=== PATIENT | female | born 1975 | race Caucasian/White ===

== ENCOUNTER 2024-07-09 18:22 | Inpatient (IN) | payer OTHER ==
[~2024-07-09] VITALS: Ht 165.1 cm; Wt 89.4 kg
[2024-07-09] MEDS: ONDANSETRON 4MG ODT PO STA (19:16)
[2024-07-09 19:55] LABS: HEMATOCRIT. 37.7 % (36.0-48.0); MEAN CORPUSCULAR HEMOGLOBIN 33.6 pg (28.0-32.0); MEAN CORPUSCULAR HGB CONC 34.5 g/dL (31.0-37.0); MEAN CORPUSCULAR VOLUME 97.6 fL (81.0-99.0); MEAN PLATELET VOLUME 9.2 fl (7.4-10.4); RED BLOOD CELL COUNT 3.86 mill/uL (4.2-5.4); RED CELL DISTRIBUTION WIDTH 14.7 % (11.6-14.6); WHITE BLOOD COUNT 4.5 x1000/uL (4.5-11.0)
[2024-07-09 19:56] LABS: CARBON DIOXIDE 17 mEq/L (21-32); CHLORIDE 99 mEq/L (98-107); SODIUM 135 mEq/L (136-145)
[2024-07-09 19:57] LABS: CALCIUM 8.8 mg/dL (8.7-10.4)
[2024-07-09 20:01] LABS: CREATININE 0.8 mg/dL (0.6-1.0)
[2024-07-09 20:02] LABS: ETHANOL BLOOD 109 mg/dL (<10); GLUCOSE 220 mg/dL (70-105); UREA NITROGEN BLOOD 13 mg/dL (9-23)
[2024-07-09 20:04] LABS: DIFFERENTIAL COMMENT 1; PLATELET 36 x1000/uL (130-400)
[2024-07-09 20:27] LABS: POTASSIUM 2.6 mEq/L (3.5-5.1)
[2024-07-09] MEDS: POTASSIUM CHLORIDE 20MEQ TABLET SR PO ONE (21:34)
[2024-07-09 21:36] LABS: PLATELET ESTIMATE MARKEDLY DECREASED
[2024-07-10] MEDS: SODIUM CHLORIDE 0.9% 1,000 ML IV ONE (06:21)
[2024-07-10 07:02] LABS: CARBON DIOXIDE 21 mEq/L (21-32); CHLORIDE 99 mEq/L (98-107); POTASSIUM 3.4 mEq/L (3.5-5.1); SODIUM 136 mEq/L (136-145)
[2024-07-10 07:03] LABS: CALCIUM 9.2 mg/dL (8.7-10.4)
[2024-07-10 07:07] LABS: CREATININE 0.7 mg/dL (0.6-1.0); HCG SCREEN NEGATIVE
[2024-07-10 07:08] LABS: GLUCOSE 176 mg/dL (70-105); UREA NITROGEN BLOOD 14 mg/dL (9-23)
[2024-07-10 07:09] LABS: ALANINE AMINOTRANSFERASE 380 IU/L (10-49); ALBUMIN 4.1 g/dL (3.2-4.8)
[2024-07-10 07:10] LABS: BETA HYDROXYBUTYRATE 4.5 mMol/L (0.0-0.3); BILIRUBIN DIRECT 1.9 mg/dL (<=3.0); BILIRUBIN TOTAL 3.5 mg/dL (0.1-1.0); LACTIC ACID 2.4 mmol/L (0.4-2.0); PROTEIN TOTAL 7.2 g/dL (6.0-8.3)
[2024-07-10 07:12] LABS: ETHANOL BLOOD < 10 mg/dL (<10)
[2024-07-10 07:17] LABS: TROPONIN I HIGH SENSITIVITY 95 ng/L (3.0-34)
[2024-07-10 07:47] LABS: ASPARTATE AMINOTRANSFERASE 1907 IU/L (<34)
[2024-07-10 08:07] LABS: AMMONIA 168 uMol/L (<32)
[2024-07-10] MEDS: POTASSIUM CHLORIDE 30 MEQ in DEXT 5%/0.9% NACL 985 ML IV SCH (08:49)
[2024-07-10 09:47] LABS: INR 1.1; PARTIAL THROMBOPLASTIN TIME 26.6 sec (23.4-31.0); PROTHROMBIN TIME 12.4 sec (9.6-11.0)
[2024-07-10] MEDS ORDERED: IPRATROPIUM/ALBUTEROL 0.5-3(2.5)MG/3ML NEB HHN PRN (11:30)
[2024-07-10] MEDS ORDERED: ONDANSETRON HCL 4MG/2ML INJ IV PRN (11:30)
[2024-07-10] MEDS ORDERED: LORAZEPAM 2MG/ML INJ IV PRN (11:30)
[2024-07-10] MEDS ORDERED: CLONIDINE 0.1MG TABLET PO PRN (11:30)
[2024-07-10 12:00] VITALS: BP 166/93; PULSE 81; RESP 20; TEMP 36.89184; O2SAT 99
[2024-07-10] MEDS: HYDRALAZINE 20MG/ML VIAL IV PRN (12:50)
[2024-07-10] MEDS: MVI, ADULT NO.1 10 ML, FOLIC ACID 1 MG, THIAMINE HCL 100 MG in SODIUM CHLORIDE 0.9% 1,0... IV SCH (13:17)
[2024-07-10 13:36] VITALS: BP 162/89; PULSE 81; RESP 20; TEMP 36.8628
[2024-07-10] MEDS: KCL 20MEQ/100ML PREMIX 100 ML IV NR (13:41)
[2024-07-10 16:00] VITALS: BP 168/99; PULSE 110; RESP 20; TEMP 36.6696; O2SAT 100
[2024-07-10 17:03] LABS: PHOSPHORUS 0.5 mg/dL (2.5-4.9); TROPONIN I HIGH SENSITIVITY 76 ng/L (3.0-34)
[2024-07-10] MEDS ORDERED: LACTULOSE 20G/30ML UDC NG SCH (18:15)
[2024-07-10 18:16] LABS: VITAMIN B12 SERUM 1400 pg/mL (211-911)
[2024-07-10 18:26] LABS: HEPATITIS B SURFACE ANTIGEN NEGATIVE (Negative)
[2024-07-10 18:47] LABS: HEPATITIS A AB IGM NEGATIVE (Negative)
[2024-07-10 18:48] LABS: HEPATITIS B CORE AB IGM NEGATIVE (Negative); HEPATITIS C AB REACTIVE (Pos) (Negative)
[2024-07-10 20:00] VITALS: BP 166/99; PULSE 100; RESP 20; TEMP 37.2252; O2SAT 99
[2024-07-10] MEDS: RIFAXIMIN 550 MG TABLET NG SCH (21:00)
[2024-07-10 21:55] LABS: BASOPHILS % 0.3 % (0.0-2.0); EOSINOPHILS % 0.1 % (0.0-5.0); HEMATOCRIT. 38.6 % (36.0-48.0); HEMOGLOBIN. 13.3 g/dL (12.0-16.0); LYMPHOCYTES % 9.2 % (20.0-50.0); MEAN CORPUSCULAR HEMOGLOBIN 33.6 pg (28.0-32.0); MEAN CORPUSCULAR HGB CONC 34.6 g/dL (31.0-37.0); MEAN CORPUSCULAR VOLUME 97.4 fL (81.0-99.0); MEAN PLATELET VOLUME 9.1 fl (7.4-10.4); MONOCYTES % 14.2 % (2.0-8.0); NEUTROPHILS % 76.2 % (40.0-76.0); RED BLOOD CELL COUNT 3.96 mill/uL (4.2-5.4); RED CELL DISTRIBUTION WIDTH 14.9 % (11.6-14.6); WHITE BLOOD COUNT 5.9 x1000/uL (4.5-11.0)
[2024-07-10] MEDS: SODIUM PHOSPHATE 30 MMOL in SODIUM CHLORIDE 0.9% 500 ML IV NR (22:02)
[2024-07-10 22:14] LABS: ACETAMINOPHEN < 2 ug/mL (10-30)
[2024-07-10 22:23] LABS: DIFFERENTIAL COMMENT 1; TROPONIN I HIGH SENSITIVITY 75 ng/L (3.0-34)
[2024-07-10 22:24] LABS: PLATELET 50 x1000/uL (130-400)
[2024-07-10] MEDS ORDERED: IOHEXOL-300 100 ML BOTTLE ONE (23:11)
[2024-07-11] VITALS (7 sets, daily range): BP systolic 116–196; BP diastolic 83–102; PULSE 86–126; RESP 18–20; TEMP 37.05852–38.66976; O2SAT 96–100
[2024-07-11 00:28] LABS: TROPONIN I HIGH SENSITIVITY 80 ng/L (3.0-34)
[2024-07-11 02:58] LABS: PHOSPHORUS 0.7 mg/dL (2.5-4.9)
[2024-07-11] MEDS ORDERED: POTASSIUM PHOSPHATE 30 MMOL in SODIUM CHLORIDE 0.9% 490 ML IV NR (04:00)
[2024-07-11 06:02] LABS: AMMONIA 88 uMol/L (<32)
[2024-07-11 06:38] LABS: HEMOGLOBIN 13.6 g/dL (12.0-16.0); HEMOGLOBIN. 13.6 g/dL (12.0-16.0); MEAN CORPUSCULAR HEMOGLOBIN 33.5 pg (28.0-32.0); MEAN CORPUSCULAR VOLUME 98.4 fL (81.0-99.0); MEAN PLATELET VOLUME 8.5 fl (7.4-10.4); PLATELET 55 x1000/uL (130-400); RED BLOOD CELL COUNT 4.07 mill/uL (4.2-5.4); RED CELL DISTRIBUTION WIDTH 15.1 % (11.6-14.6); WHITE BLOOD COUNT 6.8 x1000/uL (4.5-11.0)
[2024-07-11 06:39] LABS: INR 1.2
[2024-07-11 06:48] LABS: CHLORIDE 108 mEq/L (98-107); SODIUM 144 mEq/L (136-145)
[2024-07-11 06:50] LABS: CARBON DIOXIDE 18 mEq/L (21-32)
[2024-07-11 06:51] LABS: CALCIUM 8.7 mg/dL (8.7-10.4)
[2024-07-11 06:55] LABS: CREATININE 0.6 mg/dL (0.6-1.0); GLUCOSE 143 mg/dL (70-105)
[2024-07-11 06:56] LABS: ALANINE AMINOTRANSFERASE 308 IU/L (10-49); UREA NITROGEN BLOOD 11 mg/dL (9-23)
[2024-07-11 06:57] LABS: ALBUMIN 3.6 g/dL (3.2-4.8); ASPARTATE AMINOTRANSFERASE 849 IU/L (<34)
[2024-07-11 06:58] LABS: BILIRUBIN DIRECT 1.7 mg/dL (<=3.0); PROTEIN TOTAL 6.6 g/dL (6.0-8.3)
[2024-07-11 08:01] LABS: DIFFERENTIAL COMMENT 1
[2024-07-11 08:21] LABS: POTASSIUM 2.5 mEq/L (3.5-5.1)
[2024-07-11] MEDS ORDERED: POTASSIUM PHOSPHATE 30 MMOL in DEXT 5% WATER 490 ML IV ONE (09:15)
[2024-07-11] MEDS: KCL 20MEQ/100ML PREMIX 100 ML IV SCH (11:15)
[2024-07-11 12:02] LABS: PLATELET ESTIMATE MARKEDLY DECREASED
[2024-07-11] MEDS: SODIUM PHOSPHATE 15 MMOL in DEXT 5% WATER 245 ML IV NR (13:32)
[2024-07-11 14:09] LABS: BG BASE EXCESS 0.6 mmol/L (-2.0-3.0); BG DEOXYHEMOGLOBIN 2.7 % (0.0-5.0); BG FRACTION INSPIRED OXYGEN 21; BG HCO3 ACT 19.9 mmol/L (21.0-28.0); BG METHEMOGLOBIN 0.1 % (0.5-1.5); BG OXYGEN SATURATION 97.3 % (94.0-98.0); BG OXYHEMOGLOBIN 96.2 % (94.0-98.0); BG PCO2 21.8 mmHg (32.0-45.0); BG PH 7.579 (7.350-7.450); BG PO2 79.4 mmHg (83.0-108.0); BG SAMPLE SITE RIGHT RADIAL; BG TOTAL HEMOGLOBIN 16.5 g/dL (12.0-16.0); BG VENT MODE ROOM AIR
[2024-07-11] MEDS: FOLIC ACID 1 MG, THIAMINE HCL 100 MG, MVI, ADULT NO.1 10 ML in DEXTROSE 5% WATER 1,000 ML IV ONE (14:22)
[2024-07-11 14:53] LABS: CLARITY URINE CLEAR (CLEAR); COLOR URINE DARK YELLOW (YELLOW); GLUCOSE URINE NEGATIVE (NEGATIVE); KETONES URINE 4+ (NEGATIVE); LEUKOCYTE ESTERASE URINE NEGATIVE (NEGATIVE); NITRITE URINE NEGATIVE (NEGATIVE); OCCULT BLOOD URINE 2+ (NEGATIVE); PROTEIN URINE 3+ (NEGATIVE); SPECIFIC GRAVITY URINE 1.019 (1.005-1.030)
[2024-07-11 15:10] LABS: BACTERIA URINE 1+; WBC URINE 0-2 /hpf (0-2); YEAST URINE NONE SEEN
[2024-07-11 15:11] LABS: SQUAMOUS EPITHELIAL CELL URINE FEW /lpf (RARE/1+)
[2024-07-11 15:25] LABS: *AMPHETAMINES SCREEN URINE NEGATIVE (NEGATIVE); *BARBITURATES SCREEN URINE NEGATIVE (NEGATIVE); *BENZODIAZEPINES SCREEN URINE NEGATIVE (NEGATIVE); *COCAINE SCREEN URINE NEGATIVE (NEGATIVE); METHADONE URINE SCREEN NEGATIVE (NEGATIVE); OPIATES URINE SCREEN NEGATIVE (NEGATIVE); PHENCYCLIDINE URINE SCREEN NEGATIVE (NEGATIVE)
[2024-07-11 15:26] LABS: CANNABINOID URINE SCREEN NEGATIVE (NEGATIVE); ECSTASY MDMA SCREEN URINE NEGATIVE (NEGATIVE)
[2024-07-11] MEDS: METRONIDAZOLE 500 MG PREMIX 100 ML IV SCH (19:11)
[2024-07-11] MEDS: LACTATED RINGERS 1,000 ML IV SCH (19:11)
[2024-07-11 19:13] LABS: CARBON DIOXIDE 21 mEq/L (21-32); CHLORIDE 109 mEq/L (98-107); SODIUM 145 mEq/L (136-145)
[2024-07-11 19:14] LABS: CALCIUM 8.5 mg/dL (8.7-10.4)
[2024-07-11 19:18] LABS: CREATININE 0.7 mg/dL (0.6-1.0); GLUCOSE 175 mg/dL (70-105)
[2024-07-11 19:19] LABS: UREA NITROGEN BLOOD 10 mg/dL (9-23)
[2024-07-11 19:21] LABS: PHOSPHORUS 1.6 mg/dL (2.5-4.9)
[2024-07-11 19:35] LABS: POTASSIUM 2.3 mEq/L (3.5-5.1)
[2024-07-11] MEDS: LACTULOSE 20G/30ML UDC PO SCH (21:13)
[2024-07-11] MEDS: CEFTRIAXONE 1GM/50ML 50ML IV SCH (21:13)
[2024-07-11] MEDS: THIAMINE HCL 200 MG in SODIUM CHLORIDE 0.9% 100 ML IV SCH (21:41)
[2024-07-11] MEDS ORDERED: PIPERACILLIN/TAZO 3.375G/100ML 100 ML IV SCH (22:00)
[2024-07-11 22:09] LABS: BG BASE EXCESS 2.4 mmol/L (-2.0-3.0); BG CARBOXYHEMOGLOBIN 0.6 % (0.5-1.5); BG DEOXYHEMOGLOBIN 1.9 % (0.0-5.0); BG FRACTION INSPIRED OXYGEN 32; BG HCO3 ACT 23.1 mmol/L (21.0-28.0); BG METHEMOGLOBIN 0.3 % (0.5-1.5); BG OXYGEN SATURATION 98.1 % (94.0-98.0); BG OXYHEMOGLOBIN 97.2 % (94.0-98.0); BG PCO2 25.9 mmHg (32.0-45.0); BG PH 7.568 (7.350-7.450); BG PO2 92.9 mmHg (83.0-108.0); BG SAMPLE SITE LEFT RADIAL; BG TOTAL HEMOGLOBIN 14.2 g/dL (12.0-16.0); BG VENT MODE NASAL CANNULA
[2024-07-12] VITALS: BP 165/93; PULSE 111; RESP 20; TEMP 37.33632; O2SAT 97
[2024-07-12 01:27] LABS: CHLORIDE 108 mEq/L (98-107); SODIUM 144 mEq/L (136-145)
[2024-07-12 01:28] LABS: CALCIUM 8.9 mg/dL (8.7-10.4); CARBON DIOXIDE 24 mEq/L (21-32)
[2024-07-12 01:33] LABS: CREATININE 0.6 mg/dL (0.6-1.0); GLUCOSE 187 mg/dL (70-105); UREA NITROGEN BLOOD 10 mg/dL (9-23)
[2024-07-12 01:58] LABS: POTASSIUM 2.3 mEq/L (3.5-5.1)
[2024-07-12 04:00] VITALS: BP 147/86; PULSE 93; RESP 20; TEMP 38.28084; O2SAT 97
[2024-07-12] MEDS: MAGNESIUM/ALUMINUM HYDROXIDE/SIMETHICONE 30ML UDC PO PRN (05:18)
[2024-07-12] MEDS: POTASSIUM CHLORIDE 20MEQ/PACKET JT NR (06:09)
[2024-07-12] MEDS: MAGNESIUM 2 G PREMIX 50 ML IV NR ×2 (06:43→17:15)
[2024-07-12] MEDS: POTASSIUM-SODIUM PHOSPHATE POWDER PACKET PO SCH (07:46)
[2024-07-12 08:10] VITALS: BP 168/100; PULSE 98; RESP 19; TEMP 37.16964; O2SAT 99
[2024-07-12 09:19] LABS: CHLORIDE 109 mEq/L (98-107); SODIUM 144 mEq/L (136-145)
[2024-07-12 09:20] LABS: CALCIUM 8.9 mg/dL (8.7-10.4); CARBON DIOXIDE 23 mEq/L (21-32)
[2024-07-12 09:24] LABS: HEMATOCRIT. 40.3 % (36.0-48.0); HEMOGLOBIN. 13.5 g/dL (12.0-16.0); MEAN CORPUSCULAR HGB CONC 33.5 g/dL (31.0-37.0); MEAN CORPUSCULAR VOLUME 98.5 fL (81.0-99.0); MEAN PLATELET VOLUME 7.9 fl (7.4-10.4); PLATELET 65 x1000/uL (130-400); RED BLOOD CELL COUNT 4.09 mill/uL (4.2-5.4); RED CELL DISTRIBUTION WIDTH 14.8 % (11.6-14.6); WHITE BLOOD COUNT 6.9 x1000/uL (4.5-11.0)
[2024-07-12 09:25] LABS: CREATININE 0.6 mg/dL (0.6-1.0); GLUCOSE 209 mg/dL (70-105); UREA NITROGEN BLOOD 9 mg/dL (9-23)
[2024-07-12 09:26] LABS: AMMONIA 76 uMol/L (<32)
[2024-07-12 09:27] LABS: ALANINE AMINOTRANSFERASE 236 IU/L (10-49); ALBUMIN 3.3 g/dL (3.2-4.8); ASPARTATE AMINOTRANSFERASE 476 IU/L (<34); BILIRUBIN TOTAL 2.8 mg/dL (0.1-1.0); PROTEIN TOTAL 6.3 g/dL (6.0-8.3)
[2024-07-12] MEDS: AMLODIPINE 5MG TABLET PO SCH (09:28)
[2024-07-12 09:30] LABS: DIFFERENTIAL COMMENT 1
[2024-07-12 09:36] LABS: INR 1.2; PROTHROMBIN TIME 13.1 sec (9.6-11.0)
[2024-07-12 12:04] VITALS: BP 138/81; PULSE 101; RESP 20; TEMP 37.28076; O2SAT 96
[2024-07-12 12:08] LABS: POTASSIUM 2.6 mEq/L (3.5-5.1)
[2024-07-12] MEDS: POTASSIUM CHLORIDE 20MEQ TABLET SR PO NR (12:54)
[2024-07-12 14:07] LABS: NUCLEATED RED BLOOD CELLS 2 /100 WBC; PLATELET ESTIMATE DECREASED
[2024-07-12] MEDS: KCL 20MEQ/100ML PREMIX 100 ML IV SCH (14:41)
[2024-07-12 16:04] VITALS: BP 134/82; PULSE 90; RESP 20; TEMP 37.00296; O2SAT 99
[2024-07-12] MEDS: ACETAMINOPHEN 650MG/20.3ML UDC PO PRN (16:47)
[2024-07-12 17:13] LABS: CARBON DIOXIDE 24 mEq/L (21-32); CHLORIDE 108 mEq/L (98-107); SODIUM 142 mEq/L (136-145)
[2024-07-12 17:14] LABS: CALCIUM 8.7 mg/dL (8.7-10.4)
[2024-07-12 17:19] LABS: CREATININE 0.5 mg/dL (0.6-1.0); GLUCOSE 143 mg/dL (70-105); UREA NITROGEN BLOOD 9 mg/dL (9-23)
[2024-07-12 17:21] LABS: PHOSPHORUS 1.8 mg/dL (2.5-4.9)
[2024-07-12 17:33] LABS: POTASSIUM 2.8 mEq/L (3.5-5.1)
[2024-07-12] MEDS: LORAZEPAM 2MG/ML INJ IV PRN (17:40)
[2024-07-12 20:00] VITALS: BP 110/65; PULSE 88; RESP 18; TEMP 37.33632; O2SAT 97
[2024-07-12 21:33] LABS: CHLORIDE 108 mEq/L (98-107); SODIUM 140 mEq/L (136-145)
[2024-07-12 21:34] LABS: CARBON DIOXIDE 22 mEq/L (21-32)
[2024-07-12 21:35] LABS: CALCIUM 8.6 mg/dL (8.7-10.4)
[2024-07-12 21:39] LABS: CREATININE 0.6 mg/dL (0.6-1.0); GLUCOSE 134 mg/dL (70-105)
[2024-07-12 21:40] LABS: UREA NITROGEN BLOOD 11 mg/dL (9-23)
[2024-07-12 21:42] LABS: PHOSPHORUS 1.7 mg/dL (2.5-4.9)
[2024-07-12 22:04] LABS: POTASSIUM 2.8 mEq/L (3.5-5.1)
[2024-07-13] VITALS: BP 112/68; PULSE 86; RESP 18; TEMP 37.16964; O2SAT 98
[2024-07-13 02:09] LABS: CHLORIDE 107 mEq/L (98-107); SODIUM 141 mEq/L (136-145)
[2024-07-13 02:10] LABS: CALCIUM 8.5 mg/dL (8.7-10.4); CARBON DIOXIDE 25 mEq/L (21-32)
[2024-07-13 02:15] LABS: CREATININE 0.5 mg/dL (0.6-1.0); GLUCOSE 127 mg/dL (70-105); UREA NITROGEN BLOOD 12 mg/dL (9-23)
[2024-07-13 03:09] LABS: POTASSIUM 2.7 mEq/L (3.5-5.1)
[2024-07-13 04:00] VITALS: BP 124/81; PULSE 80; RESP 18; TEMP 37.89192; O2SAT 97
[2024-07-13 05:08] LABS: HEMOGLOBIN. 12.8 g/dL (12.0-16.0); MEAN CORPUSCULAR HEMOGLOBIN 33.3 pg (28.0-32.0); MEAN CORPUSCULAR HGB CONC 33.7 g/dL (31.0-37.0); MEAN CORPUSCULAR VOLUME 98.9 fL (81.0-99.0); PLATELET 67 x1000/uL (130-400); RED BLOOD CELL COUNT 3.84 mill/uL (4.2-5.4); RED CELL DISTRIBUTION WIDTH 15.6 % (11.6-14.6); WHITE BLOOD COUNT 7.1 x1000/uL (4.5-11.0)
[2024-07-13 05:11] LABS: CHLORIDE 108 mEq/L (98-107); SODIUM 141 mEq/L (136-145)
[2024-07-13 05:12] LABS: CALCIUM 8.4 mg/dL (8.7-10.4); CARBON DIOXIDE 22 mEq/L (21-32)
[2024-07-13 05:17] LABS: CREATININE 0.5 mg/dL (0.6-1.0); GLUCOSE 122 mg/dL (70-105); UREA NITROGEN BLOOD 12 mg/dL (9-23)
[2024-07-13 05:18] LABS: AMMONIA 57 uMol/L (<32)
[2024-07-13 05:19] LABS: ALANINE AMINOTRANSFERASE 194 IU/L (10-49); ALBUMIN 3.1 g/dL (3.2-4.8); ASPARTATE AMINOTRANSFERASE 277 IU/L (<34); BILIRUBIN TOTAL 2.2 mg/dL (0.1-1.0)
[2024-07-13 05:46] LABS: INR 1.1; PROTHROMBIN TIME 12.4 sec (9.6-11.0)
[2024-07-13 06:03] LABS: POTASSIUM 2.8 mEq/L (3.5-5.1)
[2024-07-13 07:22] LABS: DIFFERENTIAL COMMENT 1
[2024-07-13 08:15] VITALS: BP 130/80; PULSE 80; RESP 18; TEMP 37.44744; O2SAT 99
[2024-07-13] MEDS: KCL 20MEQ/100ML PREMIX 100 ML IV SCH (08:29)
[2024-07-13 12:07] LABS: CHLORIDE 105 mEq/L (98-107); SODIUM 136 mEq/L (136-145)
[2024-07-13 12:08] VITALS: BP 110/77; PULSE 81; RESP 19; TEMP 36.83628; O2SAT 99
[2024-07-13 12:08] LABS: CALCIUM 8.4 mg/dL (8.7-10.4); CARBON DIOXIDE 24 mEq/L (21-32)
[2024-07-13 12:13] LABS: CREATININE 0.5 mg/dL (0.6-1.0); GLUCOSE 123 mg/dL (70-105); UREA NITROGEN BLOOD 11 mg/dL (9-23)
[2024-07-13] MEDS: POTASSIUM-SODIUM PHOSPHATE POWDER PACKET PO SCH (12:29)
[2024-07-13 13:29] LABS: PLATELET ESTIMATE MARKEDLY DECREASED
[2024-07-13] MEDS: POTASSIUM PHOSPHATE 15 MMOL in SODIUM CHLORIDE 0.9% 245 ML IV NR (15:39)
[2024-07-13 16:18] VITALS: BP 103/64; PULSE 68; RESP 18; TEMP 36.50292; O2SAT 98
[2024-07-13 20:00] VITALS: BP 120/79; PULSE 78; RESP 18; TEMP 36.61404; O2SAT 98
[2024-07-13 20:00] LABS: CARBON DIOXIDE 24 mEq/L (21-32); CHLORIDE 104 mEq/L (98-107); POTASSIUM 2.9 mEq/L (3.5-5.1); SODIUM 137 mEq/L (136-145)
[2024-07-13 20:01] LABS: CALCIUM 8.6 mg/dL (8.7-10.4)
[2024-07-13 20:06] LABS: CREATININE 0.5 mg/dL (0.6-1.0); GLUCOSE 113 mg/dL (70-105); UREA NITROGEN BLOOD 9 mg/dL (9-23)
[2024-07-13] MEDS: POTASSIUM CHLORIDE 20MEQ TABLET SR PO SCH (21:24)
[2024-07-13] MEDS: KETOROLAC 15MG/ML VIAL IV PRN (21:25)
[2024-07-13 22:36] LABS: CARBON DIOXIDE 22 mEq/L (21-32); CHLORIDE 107 mEq/L (98-107); SODIUM 138 mEq/L (136-145)
[2024-07-13 22:37] LABS: CALCIUM 8.1 mg/dL (8.7-10.4)
[2024-07-13 22:41] LABS: TROPONIN I HIGH SENSITIVITY 27 ng/L (3.0-34)
[2024-07-13 22:42] LABS: CREATININE 0.5 mg/dL (0.6-1.0); GLUCOSE 134 mg/dL (70-105); UREA NITROGEN BLOOD 10 mg/dL (9-23)
[2024-07-14] VITALS: BP 128/77; PULSE 74; RESP 20; TEMP 37.16964; O2SAT 98
[2024-07-14] MEDS: NITROGLYCERIN 0.4MG TABLET SL SL PRN (01:00)
[2024-07-14 04:00] VITALS: BP 121/77; PULSE 76; RESP 20; TEMP 37.11408; O2SAT 98
[2024-07-14 06:51] LABS: CALCIUM 8.3 mg/dL (8.7-10.4); CARBON DIOXIDE 22 mEq/L (21-32); CHLORIDE 109 mEq/L (98-107); POTASSIUM 3.3 mEq/L (3.5-5.1); SODIUM 139 mEq/L (136-145)
[2024-07-14 06:54] LABS: CREATININE 0.6 mg/dL (0.6-1.0)
[2024-07-14 06:55] LABS: GLUCOSE 158 mg/dL (70-105); UREA NITROGEN BLOOD 10 mg/dL (9-23)
[2024-07-14 06:56] LABS: ALANINE AMINOTRANSFERASE 145 IU/L (10-49); ALBUMIN 3.1 g/dL (3.2-4.8); ASPARTATE AMINOTRANSFERASE 153 IU/L (<34)
[2024-07-14 06:57] LABS: BILIRUBIN DIRECT 0.8 mg/dL (<=3.0); BILIRUBIN TOTAL 1.5 mg/dL (0.1-1.0); PHOSPHORUS 1.5 mg/dL (2.5-4.9)
[2024-07-14 06:59] LABS: AMMONIA 64 uMol/L (<32); PROTEIN TOTAL 5.8 g/dL (6.0-8.3)
[2024-07-14 08:00] VITALS: BP 132/79; PULSE 85; RESP 20; TEMP 36.3; O2SAT 99
[2024-07-14 08:01] LABS: HEMATOCRIT. 39.5 % (36.0-48.0); HEMOGLOBIN. 13.1 g/dL (12.0-16.0); MEAN CORPUSCULAR HEMOGLOBIN 33.4 pg (28.0-32.0); MEAN CORPUSCULAR HGB CONC 33.2 g/dL (31.0-37.0); MEAN CORPUSCULAR VOLUME 100.6 fL (81.0-99.0); PLATELET 65 x1000/uL (130-400); RED BLOOD CELL COUNT 3.93 mill/uL (4.2-5.4); RED CELL DISTRIBUTION WIDTH 15.4 % (11.6-14.6); WHITE BLOOD COUNT 4.8 x1000/uL (4.5-11.0)
[2024-07-14 09:47] LABS: DIFFERENTIAL COMMENT 1
[2024-07-14 12:00] VITALS: BP 110/66; PULSE 79; RESP 20; TEMP 36.3; O2SAT 98
[2024-07-14 16:00] VITALS: BP 127/68; PULSE 81; RESP 18; TEMP 36.2; O2SAT 99
[2024-07-14 20:00] VITALS: BP 132/70; PULSE 78; RESP 20; TEMP 36.8; O2SAT 98
[2024-07-14 20:33] LABS: PLATELET ESTIMATE DECREASED
[2024-07-15] VITALS: BP 118/76; PULSE 80; RESP 18; TEMP 37.5; O2SAT 97
[2024-07-15 04:00] VITALS: BP 140/86; PULSE 89; RESP 18; TEMP 36.8; O2SAT 99
[2024-07-15 06:48] LABS: AMMONIA 58 uMol/L (<32)
[2024-07-15 07:03] LABS: CHLORIDE 114 mEq/L (98-107); POTASSIUM 3.9 mEq/L (3.5-5.1); SODIUM 143 mEq/L (136-145)
[2024-07-15 07:06] LABS: CALCIUM 8.5 mg/dL (8.7-10.4); CARBON DIOXIDE 21 mEq/L (21-32)
[2024-07-15 07:11] LABS: CREATININE 0.5 mg/dL (0.6-1.0); GLUCOSE 124 mg/dL (70-105); UREA NITROGEN BLOOD 5 mg/dL (9-23)
[2024-07-15 07:12] LABS: ALANINE AMINOTRANSFERASE 116 IU/L (10-49)
[2024-07-15 07:13] LABS: ASPARTATE AMINOTRANSFERASE 102 IU/L (<34); BILIRUBIN TOTAL 1.2 mg/dL (0.1-1.0); PHOSPHORUS 1.8 mg/dL (2.5-4.9); PROTEIN TOTAL 5.9 g/dL (6.0-8.3)
[2024-07-15 08:00] VITALS: BP 125/83; PULSE 79; RESP 20; TEMP 36.6; O2SAT 100
[2024-07-15] MEDS ORDERED: LACTULOSE 20G/30ML UDC PO PRN (09:00)
[2024-07-15] MEDS: MAGNESIUM 2 G PREMIX 50 ML IV NR (09:40)
[2024-07-15 12:00] VITALS: BP 138/86; PULSE 75; RESP 18; TEMP 36.5; O2SAT 100
[2024-07-15] MEDS: MAGNESIUM OXIDE 400MG TABLET PO SCH (14:35)
[2024-07-15 16:00] VITALS: BP 123/63; PULSE 83; RESP 21; TEMP 38.2; O2SAT 94
[2024-07-15 20:00] VITALS: BP 124/83; PULSE 89; RESP 18; TEMP 36.1; O2SAT 99
[2024-07-16] VITALS: BP 125/83; PULSE 79; RESP 19; TEMP 36.1; O2SAT 96
[2024-07-16 04:00] VITALS: BP 130/87; PULSE 78; RESP 18; TEMP 36.1; TEMP 36.6; O2SAT 98
[2024-07-16 07:57] VITALS: BP 161/77; PULSE 78; RESP 20; TEMP 36.9; O2SAT 99
[2024-07-16 08:35] LABS: CHLORIDE 109 mEq/L (98-107); HEMATOCRIT. 37.5 % (36.0-48.0); HEMOGLOBIN. 12.5 g/dL (12.0-16.0); MEAN CORPUSCULAR HEMOGLOBIN 33.6 pg (28.0-32.0); MEAN CORPUSCULAR HGB CONC 33.4 g/dL (31.0-37.0); MEAN CORPUSCULAR VOLUME 100.8 fL (81.0-99.0); MEAN PLATELET VOLUME 8.4 fl (7.4-10.4); PLATELET 97 x1000/uL (130-400); POTASSIUM 4.2 mEq/L (3.5-5.1); RED BLOOD CELL COUNT 3.72 mill/uL (4.2-5.4); RED CELL DISTRIBUTION WIDTH 15.4 % (11.6-14.6); SODIUM 139 mEq/L (136-145); WHITE BLOOD COUNT 4.2 x1000/uL (4.5-11.0)
[2024-07-16 08:36] LABS: CALCIUM 8.6 mg/dL (8.7-10.4); CARBON DIOXIDE 20 mEq/L (21-32)
[2024-07-16 08:41] LABS: CREATININE 0.5 mg/dL (0.6-1.0); GLUCOSE 135 mg/dL (70-105); UREA NITROGEN BLOOD 6 mg/dL (9-23)
[2024-07-16 08:42] LABS: AMMONIA 37 uMol/L (<32); DIFFERENTIAL COMMENT 1
[2024-07-16 08:44] LABS: PHOSPHORUS 2.7 mg/dL (2.5-4.9)
[2024-07-16] MEDS: POTASSIUM CHLORIDE 20MEQ TABLET SR PO SCH (09:55)
[2024-07-16] MEDS: THIAMINE HCL 100MG TABLET PO SCH (09:55)
[2024-07-16 10:08] LABS: HIV 1 ABS Reactive (Non Reactive); HIV 2 ABS Non Reactive (Non Reactive); HIV SCREEN 4G Preliminary Reactive (Non Reactive); INTERPRETATION HIV-1 Positive (.)
[2024-07-16 12:02] VITALS: BP 144/93; PULSE 83; RESP 19; TEMP 36.8; O2SAT 99
[2024-07-16] MEDS: MAGNESIUM 2 G PREMIX 50 ML IV NR (15:14)
[2024-07-16 16:00] VITALS: BP 132/96; PULSE 87; RESP 18; TEMP 36.4; O2SAT 98
[2024-07-16 20:00] VITALS: BP 126/93; PULSE 84; RESP 17; TEMP 36.6; O2SAT 100
[2024-07-16] MEDS: LACTOBACILLUS GG CAPSULE PO SCH (20:00)
[2024-07-16 21:01] LABS: PLATELET ESTIMATE DECREAS
[2024-07-17] VITALS: BP 131/84; PULSE 90; RESP 18; TEMP 36.5; O2SAT 99
[2024-07-17 04:00] VITALS: BP 128/88; PULSE 82; RESP 18; TEMP 37.1; O2SAT 99
[2024-07-17] MEDS: DOCUSATE SODIUM 100MG CAPSULE PO PRN (06:39)
[2024-07-17 08:00] VITALS: BP 125/75; PULSE 75; RESP 18; TEMP 36.4; O2SAT 99
[2024-07-17] MEDS: POTASSIUM CHLORIDE 20MEQ TABLET SR PO SCH (09:40)
[2024-07-17 12:00] VITALS: BP 139/68; PULSE 72; RESP 20; TEMP 36.2; O2SAT 98
[2024-07-17] MEDS: ACETAMINOPHEN 650MG/20.3ML UDC PO PRN (13:01)
[2024-07-17 16:00] VITALS: BP 129/83; PULSE 82; RESP 20; TEMP 36.3; O2SAT 99
[2024-07-17 17:04] LABS: HEMATOCRIT. 38.7 % (36.0-48.0); HEMOGLOBIN. 12.9 g/dL (12.0-16.0); MEAN CORPUSCULAR HEMOGLOBIN 33.4 pg (28.0-32.0); MEAN CORPUSCULAR HGB CONC 33.3 g/dL (31.0-37.0); MEAN CORPUSCULAR VOLUME 100.4 fL (81.0-99.0); PLATELET 140 x1000/uL (130-400); RED BLOOD CELL COUNT 3.85 mill/uL (4.2-5.4); RED CELL DISTRIBUTION WIDTH 15.1 % (11.6-14.6)
[2024-07-17 17:08] LABS: CHLORIDE 102 mEq/L (98-107); POTASSIUM 4.8 mEq/L (3.5-5.1); SODIUM 135 mEq/L (136-145)
[2024-07-17 17:09] LABS: CALCIUM 9.3 mg/dL (8.7-10.4); CARBON DIOXIDE 25 mEq/L (21-32)
[2024-07-17 17:10] LABS: DIFFERENTIAL COMMENT 1
[2024-07-17 17:14] LABS: CREATININE 0.8 mg/dL (0.6-1.0); GLUCOSE 232 mg/dL (70-105); UREA NITROGEN BLOOD 8 mg/dL (9-23)
[2024-07-17 17:17] LABS: PHOSPHORUS 3.7 mg/dL (2.5-4.9)
[2024-07-17 20:00] VITALS: BP 130/85; PULSE 85; RESP 18; TEMP 36.5; O2SAT 96
[2024-07-17 20:12] LABS: PLATELET ESTIMATE NORMAL
[2024-07-18] VITALS: BP 120/76; PULSE 77; RESP 18; TEMP 35.8; O2SAT 98
[2024-07-18 04:00] VITALS: BP 121/72; PULSE 78; RESP 18; TEMP 36.9; O2SAT 99
[2024-07-18 07:54] LABS: HEMATOCRIT. 38.7 % (36.0-48.0); HEMOGLOBIN. 12.9 g/dL (12.0-16.0); MEAN CORPUSCULAR HEMOGLOBIN 33.4 pg (28.0-32.0); MEAN CORPUSCULAR HGB CONC 33.2 g/dL (31.0-37.0); MEAN CORPUSCULAR VOLUME 100.4 fL (81.0-99.0); MEAN PLATELET VOLUME 7.8 fl (7.4-10.4); PLATELET 165 x1000/uL (130-400); RED BLOOD CELL COUNT 3.86 mill/uL (4.2-5.4); RED CELL DISTRIBUTION WIDTH 14.9 % (11.6-14.6); WHITE BLOOD COUNT 4.6 x1000/uL (4.5-11.0)
[2024-07-18 08:00] VITALS: BP 105/70; PULSE 79; RESP 18; TEMP 36.4; O2SAT 97
[2024-07-18 08:11] LABS: CARBON DIOXIDE 24 mEq/L (21-32); CHLORIDE 103 mEq/L (98-107); POTASSIUM 4.4 mEq/L (3.5-5.1); SODIUM 134 mEq/L (136-145)
[2024-07-18 08:13] LABS: CALCIUM 9.2 mg/dL (8.7-10.4)
[2024-07-18 08:16] LABS: CREATININE 0.6 mg/dL (0.6-1.0)
[2024-07-18 08:17] LABS: GLUCOSE 152 mg/dL (70-105)
[2024-07-18 08:18] LABS: UREA NITROGEN BLOOD 9 mg/dL (9-23)
[2024-07-18 08:20] LABS: PHOSPHORUS 3.7 mg/dL (2.5-4.9)
[2024-07-18] MEDS ORDERED: SULF1TAB47 PO (08:41)
[2024-07-18] MEDS ORDERED: THIA100T72 PO (08:41)
[2024-07-18] MEDS ORDERED: LACT1CAP77 PO (08:41)
[2024-07-18] MEDS ORDERED: MAGN400C PO (08:41)
[2024-07-18] MEDS ORDERED: LACT10SO7 PO (08:41)
[2024-07-18] MEDS ORDERED: AMLO5TAB88 PO (08:41)
[2024-07-18] MEDS ORDERED: SERT25TA74 PO (08:41)
[2024-07-18] MEDS: SERTRALINE HCL 25MG TABLET PO SCH (09:05)
[2024-07-18 09:06] LABS: DIFFERENTIAL COMMENT 1
[2024-07-18] MEDS: MAGNESIUM 2 G PREMIX 50 ML IV NR (11:58)
[2024-07-18 12:00] VITALS: BP 105/66; PULSE 77; RESP 17; TEMP 37.1; O2SAT 96
[2024-07-18 14:23] VITALS: BP 15/66; PULSE 77; TEMP 98.8; O2SAT 96
[2024-07-19 09:06] LABS: ABSOLUTE EOSINOPHILS 0.1 x10E3/uL (0.0-0.4); ABSOLUTE LYMPHOCYTES 1.2 x10E3/uL (0.7-3.1); ABSOLUTE MONOCYTES 0.8 x10E3/uL (0.1-0.9); BASOPHILS 1 % (Not Estab.); EOSINOPHILS 1 % (Not Estab.); HEMATOCRIT 39.6 % (34.0-46.6); HEMOGLOBIN 12.9 g/dL (11.1-15.9); IMMATURE GRANULOCYTES 2 % (Not Estab.); IMMATURE GRANULOCYTES ABSOLUTE 0.1 x10E3/uL (0.0-0.1); LYMPHOCYTES 29 % (Not Estab.); MEAN CORPUSCULAR HEMOGLOBIN 32.4 pg (26.6-33.0); MEAN CORPUSCULAR HGB CONC. 32.6 g/dL (31.5-35.7); MEAN CORPUSCULAR VOLUME 100 fL (79-97); MONOCYTES 19 % (Not Estab.); NEUTROPHILS 48 % (Not Estab.); PLATELETS 140 x10E3/uL (150-450); RBC 3.98 x10E6/uL (3.77-5.28); RED CELL DISTRIBUTION WIDTH 13.2 % (11.7-15.4); WBC 4.2 x10E3/uL (3.4-10.8)
[2024-07-19 19:23] LABS: PLATELET ESTIMATE NORMAL
[2024-07-20 13:06] LABS: % CD 3 POS. LYMPHOCYTES 89.3 % (57.5-86.2); % CD 4 POS. LYMPHOCYTES 38.5 % (30.8-58.5); ABSOLUTE CD 3 1072 /uL (622-2402); ABSOLUTE CD 4 HELPER 462 /uL (359-1519); ABSOLUTE CD 8 SUPPRESSOR 636 /uL (109-897); CD4/CD8 RATIO 0.73 (0.92-3.72)
== END 2024-07-18 15:17 | disposition home or self-care (01) | DRG 720 ==
LOC: ER 18:22 → 7WST 07-10 08:02 → EDBD 07-10 08:02 → EDBEDREQTM 07-10 08:04 → EDBEDREQ 07-10 08:04 → 6EST 07-16 12:15
PROVIDERS: ADMIT Internal Medicine; ATTEND Internal Medicine
DX: A41.9 Sepsis, unspecified organism (principal); I21.4 Non-ST elevation (NSTEMI) myocardial infarction; G92.9 Unspecified toxic encephalopathy; E87.29 Other acidosis; E44.0 Moderate protein-calorie malnutrition; D69.6 Thrombocytopenia, unspecified; E83.39 Other disorders of phosphorus metabolism; Z68.32 Body mass index [BMI] 32.0-32.9, adult; K74.60 Unspecified cirrhosis of liver; B19.20 Unspecified viral hepatitis C without hepatic coma; E87.6 Hypokalemia; I10 Essential (primary) hypertension; Y90.5 Blood alcohol level of 100-119 mg/100 ml; K70.10 Alcoholic hepatitis without ascites; K76.0 Fatty (change of) liver, not elsewhere classified; F10.229 Alcohol dependence with intoxication, unspecified; Z21 Asymptomatic human immunodeficiency virus [HIV] infection status; Z79.899 Other long term (current) drug therapy; H57.89 Other specified disorders of eye and adnexa
CPT/HCPCS: 36415; 36600; 71045; 74177; 76705; 80048; 80053; 80076; 80305; 80307; 80320; 80329; 81003; 82010; 82140; 82375; 82607; 82746; 82803; 82805; 82962; 83605; 83735; 84100; 84145; 84484; 84703; 85025; 85027; 85651; 86359; 86360; 86701; 86702; 86705; 86709; 87340; 87389; 93005; 93970; 97162; 97166; 97535; 99285; A4606; J0360; J0696; J1885; J2060; J3411; J3475; J3480; J3490; J7030; J7040; J7042; J7050; J7060; J7070; J7120; Q0162; Q9967; G0480